=== PATIENT | male | born 1965 | race Caucasian/White ===

== ENCOUNTER 2019-03-22 07:39 | Day surgery (SDC) | payer BC ==
[~2019-03-22] VITALS: Ht 188 cm; Wt 124.3 kg
[~2019-03-22 07:39] MED LIST: ACET500T15 PO; DIAZ5TAB PO; ESOM40CA35 PO; LIDOCAINE 1% MDV 20ML VIAL SQ PRN; LISI-538 PO; LR 1,000 ML IV ONE; MULTCAP PO; TAMS1CAP17 PO; VITA100066 PO; ceFAZolin SOD 2 GM in IV 1 EA IV ONE
[2019-03-22 08:17] LABS: INR 1.06; PROTHROMBIN TIME 13.5 SECONDS (11.8-14.0)
[2019-03-22] MEDS ORDERED: fentaNYL 100 MCG/2 ML INJECTION (J3010) As Ordered ONE (08:55)
[2019-03-22] MEDS ORDERED: PROPOFOL 200 MG/20 ML VIAL As Ordered ONE ×2 (08:55→09:44)
[2019-03-22] MEDS ORDERED: MIDAZOLAM INJ 2 MG/2 ML VIAL (J2250) As Ordered ONE (08:55)
[2019-03-22] MEDS ORDERED: dexameTHASONE 4 MG/ML 1ML VIAL (J1100) As Ordered ONE (08:55)
[2019-03-22] MEDS ORDERED: METOCLOPRAMIDE INJ 10MG/2ML VIAL (J2765) As Ordered ONE (08:55)
[2019-03-22] MEDS ORDERED: ONDANSETRON 4MG/2ML VIAL (J2405) As Ordered ONE (08:55)
[2019-03-22] MEDS ORDERED: LIDOCAINE 2% INJ 100 MG/5 ML SDV (FOR ANES.) As Ordered ONE (08:55)
[2019-03-22] MEDS ORDERED: LIDOCAINE 2% 5ML JELLY UROJET As Ordered ONE (09:28)
[2019-03-22] MEDS ORDERED: ONDANSETRON 4MG/2ML VIAL (J2405) IV PRN (10:30)
[2019-03-22] MEDS ORDERED: LR 1,000 ML IV SCH (10:30)
[2019-03-22] MEDS ORDERED: fentaNYL 100 MCG/2 ML INJECTION (J3010) IV PRN (10:30)
[2019-03-22 10:40] VITALS: BP 127/77
--- NOTE | 2019-03-23 19:12 | RO ---
DATE OF PROCEDURE: 03/22/2019 PREPROCEDURE DIAGNOSIS: Lower urinary tract symptoms. POSTPROCEDURE DIAGNOSIS: Lower urinary tract symptoms due to benign prostatic hyperplasia. PROCEDURE: Cystoscopy. SURGEON: Harshad Thorne MD PIPELINE ENGINEER: None. ANESTHESIA: Monitored anesthesia care (MAC). OPERATIVE INDICATIONS: This is a 53-year-old male with lower urinary tract symptoms and previous history of urethral stricture. It is unknown if his lower urinary tract symptoms were due to a stricture or benign prostatic hyperplasia. A cystoscopy was recommended and he would only have this done under anesthesia. He was brought to the operating room today for this procedure. DESCRIPTION OF PROCEDURE: The patient was brought to the operating room and MAC anesthesia was administered. Prophylactic antibiotics were infused. He was then placed in the dorsal lithotomy position and prepped and draped in the usual sterile fashion. At this point a rigid cystoscope was inserted into the urethral meatus and advanced towards the bladder. Of note there were no urethral abnormalities. The bladder was thoroughly examined and there were no lesions inside the bladder. Bilateral ureteral orifices were over the top and effluxed clear urine. Of note, the patient had trilobar benign prostatic hyperplasia with a fairly prominent median lobe. The lobe of the prostate did appear to be mildly obstructive. The cystoscope was then withdrawn and this marked the conclusion of the procedure. The patient was then taken out of the dorsal lithotomy position, awakened from anesthesia and transferred to the recovery room in stable condition. ESTIMATED BLOOD LOSS: 5 mL INTRAOPERATIVE COMPLICATIONS: None SPECIMENS: None PLAN: The patient's symptoms appear to be due to benign prostatic hyperplasia and not urethral stricture. Of note in the preoperative area he said his urinary symptoms have been getting better and he currently is not on any medications for his prostate. If that is the case, then he is not going to need to start any medications, but if his symptoms do return my recommendation would be to put him back on Avodart for a few months to see if his symptoms improve. It does not appear that he would like to go back on Flomax due to side effects. MTDD
== END 2019-03-22 11:09 | disposition home or self-care (01) ==
LOC: M SDC 07:39
PROVIDERS: ATTEND Urology
DX: N40.1 Benign prostatic hyperplasia with lower urinary tract symptoms (principal); R39.89 Other symptoms and signs involving the genitourinary system; I10 Essential (primary) hypertension; R73.03 Prediabetes; K21.9 Gastro-esophageal reflux disease without esophagitis; M17.0 Bilateral primary osteoarthritis of knee; F41.0 Panic disorder [episodic paroxysmal anxiety]; R06.83 Snoring; Z79.899 Other long term (current) drug therapy
CPT/HCPCS: 36415; 52000; 85610; J0690; J1100; J2250; J2405; J2765; J3010

== ENCOUNTER → 2024-12-12 | Outpatient (REF) | payer OTHER ==
[~2024-12-12] MED LIST changes: -LIDOCAINE 1% MDV 20ML VIAL SQ PRN; -LISI-538 PO; +LISI20TA33 PO; -LR 1,000 ML IV ONE; -ceFAZolin SOD 2 GM in IV 1 EA IV ONE
[2024-12-12 12:41] LABS: APPEARANCE, URINE CLEAR (CLEAR); BACTERIA, URINE AUTO NEGATIVE (NEGATIVE); BILIRUBIN, URINE AUTO NEGATIVE (NEGATIVE); BLOOD, URINE BLOOD NEGATIVE (NEGATIVE); GLUCOSE, URINE (UA) AUTO NEGATIVE (NEGATIVE); KETONE, URINE AUTO NEGATIVE (NEGATIVE); LEUKOCYTE ESTERASE, URINE AUTO NEGATIVE (NEGATIVE); MUCUS, URINE SMALL (NEGATIVE); NITRITE, URINE AUTO NEGATIVE (NEGATIVE); PROTEIN, URINE AUTO NEGATIVE (NEGATIVE); RBC, URINE AUTO 0 /HPF (0-3); SPECIFIC GRAVITY URINE AUTO 1.027 (1.002-1.035); SQUAMOUS EPITHELIAL CELL UR AU 0 /HPF (0-6); UROBILINOGEN, URINE AUTO 0.2 mg/dL (0.0-2.0); WBC, URINE AUTO 0 /HPF (0-3)
== END ==
LOC: M LAB REF 11:58
PROVIDERS: ATTEND Physician Assistant
DX: N39.0 Urinary tract infection, site not specified (principal)